=== PATIENT | female | born 1955 | race Caucasian/White ===

== ENCOUNTER 2017-07-05 14:46 | Outpatient (CLI) | payer BC, OTHER | END 2017-07-05 14:47 | disposition home or self-care (01) | LOC: BICRAD 14:46 | PROVIDERS: ATTEND Internal Medicine | DX: R05 Cough (principal); R50.9 Fever, unspecified | CPT/HCPCS: 71046 ==

== ENCOUNTER 2017-12-10 21:59 | Emergency (ER) | payer OTHER ==
[2017-12-10 23:01] LABS: #Basophils 0.1 thou/uL (0.0-0.2); #Eosinphils 0.2 thou/uL (0.0-0.7); #Lymphocytes 1.7 thou/uL (1.20-3.40); #Monocytes 0.4 thou/uL (0.11-0.59); #Neutrophils 2.9 thou/uL (1.40-6.50); %Basophils 1.4 % (0.0-1.0); %Eosinophils 3.7 % (0.0-10.0); %Lymphocytes 32.1 % (21.0-51.0); %Monocytes 7.1 % (0.0-10.0); %Neutrophils 55.8 % (42.0-75.0); Hemoglobin 13.3 g/dL (12.0-16.0); Mean Corpuscular HGB CONC 34.6 g/dL (32.0-36.0); Mean Corpuscular Hemoglobin 32.1 pg (27.0-31.0); Mean Platelet Volume 7.5 fL (7.4-10.4); Platelet Count 203 thou/uL (130-400); RBC Distribution Width 11.1 % (11.5-14.5); Red Blood Cell (RBC) Count 4.12 mill/uL (4.20-5.40); White Blood Cell (WBC) Count 5.3 thou/uL (4.8-10.8)
[2017-12-10 23:21] LABS: ALT (SGPT) 17 U/L (8-55); AST (SGOT) 31 U/L (5-34); Alkaline Phosphatase 114 U/L (40-150); Anion Gap 13 mmol/L (10-20); BUN (Urea Nitrogen) 11 mg/dL (9.8-20.1); Bilirubin, Total 0.6 mg/dL (0.2-1.2); Calc. Creatinine Clearance 0 mL/min (70-130); Carbon Dioxide 27 mmol/L (23-31); Chloride 103 mmol/L (98-107); Estimated GFR-MDRD 88; Globulin 2.1 g/dL (2.4-3.5); Glucose 100 mg/dL (80-115); Magnesium 2.2 mg/dL (1.6-2.6); Potassium 3.9 mmol/L (3.5-5.1); Protein, Total 6.1 g/dL (6.0-8.3); Sodium 139 mmol/L (136-145)
[2017-12-10 23:25] LABS: CKMB 2.6 ng/mL (0-6.6); Troponin I Less than 0.010 ng/mL (< 0.028)
--- NOTE | 2017-12-10 23:45 | RAD ---
SINGLE VIEW OF THE CHEST LEFT RIB SERIES: History: Left rib pain. FINDINGS: A single view of the chest and three views of the left ribs were performed. There is a normal sized c ardiomediastinal silhouette. There is no evidence of consolidation, mass or pleural effusions. There is possibly a fracture of the anterolateral left 10th rib. This could also represent the costoc hondral cartilage junction. No other rib fractures are appreciated. No underlying pleural thickening or pneumothorax are seen. IMPRESSION: Possible left 10th rib fracture. POS: [facility]
[2017-12-11 00:37] LABS: Bilirubin Negative (Negative); Blood, Urine Negative (Negative); Clarity CLEAR (Clear); Glucose, Urine (Dipstick) Negative (Negative); Leukocyte Negative (Negative); Nitrite Negative (Negative); Protein, Urine (Dipstick) Negative (Neg-Trace); Specific Gravity, Urine 1.011 (1.002-1.036); Urobilinogen 0.2 mg/dL (0.2-1.0)
== END 2017-12-11 00:40 | disposition home or self-care (01) ==
LOC: ERS 21:59
DX: S22.32XA Fracture of one rib, left side, initial encounter for closed fracture (principal); I10 Essential (primary) hypertension; Z87.891 Personal history of nicotine dependence; Z79.82 Long term (current) use of aspirin; X58.XXXA Exposure to other specified factors, initial encounter
CPT/HCPCS: 36415; 80053; 81003; 82553; 83735; 84484; 85025; 85379

== ENCOUNTER 2019-05-22 07:26 | Outpatient (CLI) | payer OTHER ==
--- NOTE | 2019-05-22 08:26 | ULT ---
GALLBLADDER ULTRASOUND: HISTORY: Right upper quadrant pain. COMPARISON: None. TECHNIQUE: Utilizing Multihertz transducer, sonographic imaging of the right upper quadrant is performed in the longitudinal and transverse plane. FINDINGS: Pancreas is obscured by bowel gas. Heterogeneous echotexture of the liver may be due to hepatic steatosis or hepatocellular disease. Cadena bsequent evaluation for hepatic masses and intrahepatic biliary dilatation is limited. Right hepatic lobe measures 17.1 cm. Main portal vein is patent. Appropriate directional flow. No sonographic evidence of cholelithiasis, gallbladder wall thickening, or pericholecystic fluid. Ne gative Roberto's sign. Common bile duct diameter is 0.4. The right kidney has a normal cortical echotexture. No hydronephrosis. The right kidney measures 4. 4 x 4.4 x 11.6 cm. IMPRESSION: 1. No sonographic evidence of cholelithiasis or cholecystitis. 2. Heterogeneous echotexture of the liver which may be due to hepatic steatosis or hepatocellular di sease. If there is concern for liver masses, consider abdomen MRI or liver mass protocol CT. POS: [facility]
== END 2019-05-22 07:27 | disposition home or self-care (01) ==
LOC: SCSULT 07:26
PROVIDERS: ATTEND Internal Medicine
DX: R10.9 Unspecified abdominal pain (principal); K76.89 Other specified diseases of liver
CPT/HCPCS: 76705

== ENCOUNTER 2023-07-04 09:40 | Outpatient (CLI) | payer MEDICARE, OTHER | END 2023-07-04 09:41 | disposition home or self-care (01) | LOC: ULT 09:40 | PROVIDERS: ATTEND Internal Medicine | DX: R79.89 Other specified abnormal findings of blood chemistry (principal); R15.1 Fecal smearing; R16.0 Hepatomegaly, not elsewhere classified | CPT/HCPCS: 76700 ==

== ENCOUNTER 2024-04-19 13:43 | Emergency (ER) | payer MEDICARE ==
[2024-04-19] MEDS ORDERED: Acetaminophen 500 MG TAB ONE (13:59)
== END 2024-04-19 15:12 | disposition home or self-care (01) ==
LOC: ERS 13:43
DX: S00.03XA Contusion of scalp, initial encounter (principal); M25.551 Pain in right hip; M79.621 Pain in right upper arm; I10 Essential (primary) hypertension; W01.0XXA Fall on same level from slipping, tripping and stumbling without subsequent striking against object, initial encounter; Z79.82 Long term (current) use of aspirin; Z79.899 Other long term (current) drug therapy
CPT/HCPCS: 70450; 72125